=== PATIENT | male | born 1985 | race Caucasian/White ===

== ENCOUNTER 2017-09-25 17:59 | Emergency (ER) | payer OTHER ==
--- NOTE | 2017-09-25 18:16 | CPEKG ---
Heart Rate: 98 RR Interval: 612 P-R Interval: 160 QRSD Interval: 92 QT Interval: 340 QTC Interval: 435 P [place]: 62 QRS [place]: 36 T Wave [place]: 42 EKG Severity - ABNORMAL ECG - EKG Impression: SINUS RHYTHM EKG Impression: SUPRAVENTRICULAR BIGEMINY Electronically Signed By: Linwood Qureshi 25-Sep-2017 18:33:16
--- NOTE | 2017-09-25 18:32 | EDPHY ---
H & P Stated Complaint: Sharp R sided CP starting lst night,worse w/inspiration/ movement Time Seen by Provider: 09/25/17 18:09 HPI/ROS: CHIEF COMPLAINT: Pleuritic chest pain HISTORY OF PRESENT ILLNESS: The patient presents the ED with a 1 day history of worsening right-sided pleuritic chest pain. The patient reports his symptoms have been worsening. It is worsened with deep breaths. The patient denies asymmetric calf pain or swelling. The patient is adopted and does not know his past medical history. The patient does not smoke or have a history of traumatic injury. The patient takes no regular medications. The patient has no history of recent illness. He denies fever, cough or congestion. REVIEW OF SYSTEMS: A comprehensive 10 point review of systems is otherwise negative aside from elements mentioned in the history of present illness. Source: Patient Exam Limitations: No limitations - Personal History Current Tetanus Diphtheria and Acellular Pertussis (TDAP): Yes - Medical/Surgical History Other PMH: healthy aside from known achalasia - Social History Smoking Status: Former smoker - Physical Exam Exam: General Appearance: Alert, no distress Eyes: Pupils equal and round no pallor or injection ENT, Mouth: Mucous membranes moist Respiratory: There are no retractions, lungs are clear to auscultation Cardiovascular: Regular rate and rhythm Gastrointestinal: Abdomen is soft and nontender, no masses, bowel sounds normal Neurological: A&O, normal motor function, normal sensory exam, normal cranial nerves Skin: Warm and dry, no rashes Musculoskeletal: Neck is supple nontender Extremities: symmetrical, full range of motion Constitutional: Initial Vital Signs Temperature (C) 36.5 C 09/25/17 18:01 Heart Rate 88 09/25/17 18:01 Respiratory Rate 16 09/25/17 18:01 Blood Pressure 135/81 H 09/25/17 18:01 O2 Sat (%) 99 09/25/17 18:01 O2 Delivery Mode Room Air Allergies/Adverse Reactions: No Known Allergies Allergy (Unverified 09/25/17 18:01) Home Medications: Medication Instructions Recorded Albuterol [Ventolin Hfa Inhaler] 2 puffs IH QID PRN #1 mdi 09/25/17 Amoxicillin/Clavulanate Pot 875 mg PO BID #20 tab 09/25/17 [Augmentin 875 mg tablet] Medical Decision Making - Diagnostics EKG Interpretation: EKG: Complete interpretation has been separately recorded in the [facility] archive. Summary impression: Sinus rhythm, multiple PACs, no ST segment elevation or depression. Imaging Results: Imaging Impressions Chest X-Ray 09/25/17 18:32 Impression: Right middle lobe consolidation which could be related to pneumonia. The patient is currently scheduled for a CT angiogram chest. ED Course/Re-evaluation: The patient presents to the ED with complaints of right-sided pleuritic chest pain worsening over the past day. The patient denies any antecedent infectious symptoms. He had no prior history of the symptoms. The patient was taken initially for chest x-ray which demonstrated very subtle infiltrate at the right lung base. Given the lack of antecedent infectious symptoms, a CT scan of the chest was obtained which demonstrates what appears to be an infiltrate at the right lung base without evidence of thromboembolic disease. The patient is noted to have achalasia involving the esophagus raising the possibility aspiration. The patient is hemodynamically stable. The patient will be started on antibiotics. Patient will be started on Augmentin. The patient is given a prescription for albuterol nebulizer. He is advised to use Motrin for management of his pain. The patient should follow up with a primary care provider for a recheck. The patient does have a history of known achalasia. He has been advised to sleep with the bed an upright position and to avoid eating past 7:00 p.m.. Differential Diagnosis: Differential diagnosis considered includes asthma, bronchitis, pneumonia, pulmonary embolism, pneumothorax - Data Points Laboratory Results: Laboratory Results 09/25/17 18:20 09/25/17 18:20 09/25/17 09/25/17 09/25/17 19:29 18:20 18:20 WBC RBC Hgb Hct MCV MCH MCHC RDW Plt Count MPV Neut % (Auto) Lymph % (Auto) [place] % (Auto) Eos % (Auto) Baso % (Auto) Nucleat RBC Rel Count Absolute Neuts (auto) Absolute Lymphs (auto) Absolute Monos (auto) Absolute Eos (auto) Absolute Basos (auto) Absolute Nucleated RBC Immature Gran % Immature Gran # D-Dimer 0.34 ug/mLFEU ug/mLFEU (0.00-0.50) Sodium 141 mEq/L mEq/L (135-145) Potassium 3.8 mEq/L mEq/L (3.5-5.2) Chloride 102 mEq/L mEq/L (97-110) Carbon Dioxide 24 mEq/l mEq/l (22-31) Anion Gap 15 mEq/L mEq/L (8-16) BUN 18 mg/dL mg/dL (7-23) Creatinine 0.9 mg/dL mg/dL (0.7-1.3) Estimated GFR > 60 Glucose 92 mg/dL mg/dL (70-100) POC Glucose 86 mg/dL mg/dL (70-100) Calcium 9.9 mg/dL mg/dL (8.5-10.4) Troponin I < 0.012 ng/mL ng/mL (0.000-0.034) 09/25/17 18:20 WBC 7.81 10^3/uL 10^3/uL (3.80-9.50) RBC 4.77 10^6/uL 10^6/uL (4.40-6.38) Hgb 15.6 g/dL g/dL (13.7-17.5) Hct 43.6 % % (40.0-51.0) MCV 91.4 fL fL (81.5-99.8) MCH 32.7 pg pg (27.9-34.1) MCHC 35.8 g/dL g/dL (32.4-36.7) RDW 11.7 % % (11.5-15.2) Plt Count 156 10^3/uL 10^3/uL (150-400) MPV 11.9 fL H fL (8.7-11.7) Neut % (Auto) 64.2 % % (39.3-74.2) Lymph % (Auto) 25.5 % % (15.0-45.0) [place] % (Auto) 7.0 % % (4.5-13.0) Eos % (Auto) 2.7 % % (0.6-7.6) Baso % (Auto) 0.3 % % (0.3-1.7) Nucleat RBC Rel Count 0.0 % % (0.0-0.2) Absolute Neuts (auto) 5.02 10^3/uL 10^3/uL (1.70-6.50) Absolute Lymphs (auto) 1.99 10^3/uL 10^3/uL (1.00-3.00) Absolute Monos (auto) 0.55 10^3/uL 10^3/uL (0.30-0.80) Absolute Eos (auto) 0.21 10^3/uL 10^3/uL (0.03-0.40) Absolute Basos (auto) 0.02 10^3/uL 10^3/uL (0.02-0.10) Absolute Nucleated RBC 0.00 10^3/uL 10^3/uL (0-0.01) Immature Gran % 0.3 % % (0.0-1.1) Immature Gran # 0.02 10^3/uL 10^3/uL (0.00-0.10) D-Dimer Sodium Potassium Chloride Carbon Dioxide Anion Gap BUN Creatinine Estimated GFR Glucose POC Glucose Calcium Troponin I Point of Care Test Results: 09/25/17 19:29 POC Glucose 86 Departure - Departure Disposition: Home, Routine, Self-Care Clinical Impression: Pneumonia Qualifiers: Laterality: right Lung location: lower lobe of lung Condition: Good Instructions: Bacterial Pneumonia (ED) Additional Instructions: 1. Take antibiotics as directed. 2. Use albuterol inhaler up to every 4 hr as needed. 3. Take Ibuprofen or Motrin 600 mg by mouth three times a day. 4. Secondary to your achalasia you may have had an aspiration which caused your pneumonia. 5. Please return to the ED for markedly worsening symptoms or other concerns. Referrals: Esme Jamison MD [Primary Care Provider] - As per Instructions Prescriptions: Albuterol [Ventolin Hfa Inhaler] 2 puffs IH QID PRN #1 mdi PRN Reason: for shortness of breath Amoxicillin/Clavulanate Pot [Augmentin 875 mg tablet] 875 mg PO BID #20 tab
[2017-09-25 18:36] LABS: PLATELET COUNT 156 10^3/uL (150-400)
[2017-09-25] MEDS ORDERED: IOPAMIDOL (ISOVUE 370) 100 ML BTL IV ONE (18:57)
[2017-09-25] MEDS ORDERED: KETOROLAC 30 MG/1 ML SDV IVP ONE (19:58)
[2017-09-25] MEDS ORDERED: AMOXICILLIN/CLAVULANATE POT 875/125 MG TAB PO ONE (19:59)
[2017-09-25] MEDS ORDERED: NS 1,000 ML IV ONE (20:18)
[2017-09-25 20:29] VITALS: BP 128/75; PULSE 88; RESP 18; TEMP 98.1; O2SAT 95
--- NOTE | 2017-09-26 07:31 | CPEKG ---
Heart Rate: 66 RR Interval: 909 P-R Interval: 160 QRSD Interval: 96 QT Interval: 404 QTC Interval: 424 P [place]: 63 QRS [place]: 53 T Wave [place]: 40 EKG Severity - ABNORMAL ECG - EKG Impression: SINUS RHYTHM EKG Impression: MULTIPLE ATRIAL PREMATURE COMPLEXES Electronically Signed By: Haresh Ku 27-Sep-2017 07:22:35
== END 2017-09-25 20:34 | disposition home or self-care (01) ==
DX: J18.9 Pneumonia, unspecified organism (principal); E86.9 Volume depletion, unspecified; Z87.891 Personal history of nicotine dependence
CPT/HCPCS: J1885; Q9967